=== PATIENT | male | born 1985 | race Caucasian/White ===

== ENCOUNTER → 2016-12-10 | Outpatient (CLI) | payer OTHER | LOC: M OUTALCOH 09:06 | PROVIDERS: ATTEND Psychiatry & Neurology Psychiatry | DX: Z13.9 Encounter for screening, unspecified (principal); F10.20 Alcohol dependence, uncomplicated ==

== ENCOUNTER 2016-12-21 12:38 | Emergency (ER) | payer OTHER ==
[2016-12-21 13:45] LABS: MEAN CORPUSCULAR HEMOGLOBIN 33.4 pg (27.0-33.0); MEAN CORPUSCULAR HGB CONC 34.2 g/dl (32.0-36.5); MEAN CORPUSCULAR VOLUME 97.7 fl (80.0-96.0); RED CELL DISTRIBUTION WIDTH 11.8 % (11.5-14.5); WHITE BLOOD COUNT 4.3 K/mm3 (4.0-10.0)
[2016-12-21 13:46] LABS: AMPHETAMINES LEVEL URINE NEGATIVE (NEGATIVE); BENZODIAZEPINES URINE NEGATIVE (NEGATIVE); COCAINE METABOLITE URINE NEGATIVE (NEGATIVE); CONTROL LINE INT CTR LINE PRESENT; METHADONE URINE NEGATIVE (NEGATIVE); OPIATES URINE NEGATIVE (NEGATIVE); TRICYCLIC ANTIDEPRESS URINE NEGATIVE (NEGATIVE)
[2016-12-21 14:06] LABS: ALBUMIN 4.3 GM/DL (3.2-5.2); ALBUMIN/GLOBULIN RATIO 1.59 (1.00-1.93); ALKALINE PHOSPHATASE 35 U/L (45-117); ALT/SGPT 24 U/L (12-78); ANION GAP 4 MEQ/L (8-16); AST/SGOT 14 U/L (15-37); BILIRUBIN,DIRECT 0.1 MG/DL (0.0-0.2); BILIRUBIN,TOTAL 0.3 MG/DL (0.2-1.0); BLOOD UREA NITROGEN 10 MG/DL (7-18); CALCIUM LEVEL 9.1 MG/DL (8.5-10.1); CARBON DIOXIDE LEVEL 32 MEQ/L (21-32); CHLORIDE LEVEL 110 MEQ/L (98-107); CREATININE FOR GFR 0.93 MG/DL (0.70-1.30); GLOMERULAR FILTRATION RATE > 60.0 (>60); GLUCOSE, FASTING 102 MG/DL (70-105); SODIUM LEVEL 146 MEQ/L (136-145)
[2016-12-21] MEDS ORDERED: BACLOFEN 10 MG TAB As Ordered ONE (19:11)
[2016-12-21] MEDS ORDERED: PHENobarbital 30 MG TAB As Ordered ONE (20:42)
--- NOTE | 2016-12-21 22:52 | EDDOCDS ---
Nurse's Notes [facility] Name: Man Cooper Age: 31 yrs Sex: Male : 1985 Arrival Date: 12/21/2016 Time: 12:[address] MD: Diagnosis: Alcohol dependence with intoxication Presentation: 12/21 12:54 Presenting complaint: Patient states: drinking vodka this morning may have made some jjr suicidal statements to family. Mental Health Triage Level: Level 2: The patient displays active suicidal ideations. The patient is visibly agitated and appears to be potentially at risk. Adult Sepsis Screening: The patient does not have new or worsening altered mentation. Patient's respiratory rate is less than 22. Systolic blood pressure is greater than 100. Patient has a qSOFA score of 0- Negative Sepsis Screen. Suicide/Homicide risk assessment- The patient reports that he/she has not been admitted to an inpatient mental health facility in the last 30 days. The patient reports that he/she has a recent or current history of substance abuse. The patient reports that he/she has no prior history of suicide attempt and/or organized plan. Status: Patient is not a creative services manager or dependent. Transition of care: patient was not received from another setting of care. 12:54 Acuity: CHANDRIKA Level 3 jjr 12:54 Method Of Arrival: Walkin/Carried/Asstd jjr Triage Assessment: 13:01 General: Appears in no apparent distress, Behavior is appropriate for age, cooperative, jjr Smells of alcohol. Pain: Denies pain. HIV screening NA for this visit Offered previously. Historical: - Allergies: no known allergies; - Home Meds: 1. baclofen 10 mg Oral tab 1 tab 3 times per day - PMHx: Alcoholism; Depression; - PSHx: eye surgery; - Social history: Smoking status: Patient states was never smoker of tobacco. No barriers to communication noted, The patient speaks fluent Comoran. - Family history: Not pertinent. - : The pt / caregiver states he / she is not on anticoagulants. Home medication list is obtained from the patient. - Exposure Risk Screening:: None identified. Screenin:02 Screening information is obtained from the patient. Fall risk: At risk due to apparent jjr chemical impairment, added to special handling. Assistance ADL's: requires no assistance with activities of daily living. Abuse/DV Screen: The patient / caregiver reports he/she is: not in a situation that causes fear, pain or injury. Nutritional screening: No deficits noted. Advance Directives: There is no active DNR order. home support is adequate. 13:02 Fall Risk. jjr Assessment: 13:02 General: Appears in no apparent distress, "my family is taking this too seriously I jjr don't need to be here". 15:10 General: First contact with pt. Pt sleeping. No apparent distress. Respirations easy ld5 and unlabored. Will continue to monitor. 16:00 General: Appears in no apparent distress, Behavior is cooperative. General: Pt sleeping ld5 but aroused to voice. Pain: Denies pain. Neurological: Level of Consciousness is obeys commands. Respiratory: Airway is patent Respiratory effort is even, unlabored. GI: Abdomen is flat, non- distended Bowel sounds present X 4 quads. Denies nausea, vomiting. Derm: Skin is intact, Skin is dry. 16:57 General: Appears in no apparent distress. Respiratory: Airway is patent Respiratory ld5 effort is even, unlabored. 17:19 General: Pt out to water cooler. Reports starting to get anxious. Pt states "I'm on a ld5 heavy dose muscle relaxer. Baclofen. Ever heard of it? Well it's deadly if I withdraw from it." Provider made aware of pt's request. Will continue to monitor. 18:20 General: Pt out to bathroom. Steady gait. Denies any needs. Will continue to monitor. ld5 20:19 General: Appears distressed, Behavior is anxious, cooperative, pleasant, restless. rw1 Pain: Denies pain. Neurological: Level of Consciousness is awake, alert, obeys commands, Oriented to person, place, time. Respiratory: Airway is patent Respiratory effort is even, unlabored. Derm: Skin is pink, warm & dry. normal. 21:19 Reassessment: Patient appears in no apparent distress at this time. awake resting on rw1 stretcher, safety maintained will monitor.. 22:16 General: Appears in no apparent distress, Behavior is cooperative. Pain: Denies pain. mgs Neurological: Level of Consciousness is awake, alert, Oriented to person, place, time. Cardiovascular: Capillary refill < 3 seconds. Respiratory: Airway is patent Respiratory effort is even, unlabored, Respiratory pattern is regular, symmetrical. Derm: Skin is pink, warm & dry. 22:30 Reassessment: Patient appears in no apparent distress at this time. awake resting on rw1 stretcher, safety maintained will monitor.. 22:49 Reassessment: Patient appears in no apparent distress at this time. Patient denies pain rw1 at this time. Patient states feeling better. Patient states symptoms have improved. Mental Health Eval: 22:39 Status: The patient is not a creative services manager or dependent. [facility]: The patient is not an established patient of [facility]. Referral Information: Referral Information: Evaluation referral is generated by family. The patient was referred for evaluation because PT was intoxicated and making SI statements. Vital Signs: 12:49 BP 144 / 90; Pulse 90; Resp 18; Temp 97.9; Pulse Ox 98% on R/A; Weight 77.11 kg (R); dpm Height 6 ft. 4 in. (193.04 cm) (R); 17:03 BP 112 / 65; Pulse 130; Resp 18; Temp 98.3(T); Pulse Ox 99% on R/A; dpm 17:55 Pulse 120; ld5 19:10 BP 153 / 77; Pulse 126; Resp 18; Temp 97.0(O); Pulse Ox 96% on R/A; Pain 0/10; rw1 22:49 BP 152 / 92; Pulse 88; Resp 16; Temp 98.4(O); Pulse Ox 99% on R/A; Pain 0/10; rw1 12:49 Body Mass Index 20.69 (77.11 kg, 193.04 cm) dpm Vitals: 22:51 Log In Time: December 21, 2016 at 12:54. rw1 ED Course: 12:39 Patient visited by Nayana Mack Reg. lg 12:39 Patient visited by Filemon Velazquez. dpm 12:39 Patient moved to [facility] lg 12:39 Patient moved to [facility] dpm 12:40 Becky Thomas MD is Attending Physician. sd1 12:40 Patient visited by Becky Thomas MD. sd1 12:55 Patient visited by Filemon Velazquez. dpm 12:55 Triage Initiated jjr 13:02 The patient / caregiver is instructed regarding the plan of care and ED course. jjr 13:16 Patient visited by Becky Linder. sew 13:18 Pt greeted and oriented to ED. Patient advised of names of staff involved in care, dpm location of call sanchez, wait times and NPO status. Patient has correct armband on for positive identification. Placed in gown. Placed in psych safe attire. Security observing. Property removed, inventory done, secured in belongings bag- placed in locked locker. Placed in locker 4. Psych Safety Check: Location: Psych Room. Visual Assessment: Cooperative. 13:28 Acetaminophen Level Sent. jb5 13:29 Attending Physician role handed off by Becky Thomas MD pc 13:29 Alverto Vargas MD is Attending Physician. pc 13:29 Basic Metabolic Profile Sent. jb5 13:29 Complete Blood Count Sent. jb5 13:29 Drug Eval Toxicology ED Only Sent. jb5 13:29 Ethyl Alcohol (ethanol) Sent. jb5 13:29 Thyroid Stimulating Hormone Sent. jb5 13:29 Liver Profile Sent. jb5 13:29 Salicylate Level Sent. jb5 13:31 Patient visited by Filemon Velazquez. dpm 13:33 Patient visited by Cristina Alvarez. dem1 13:49 Patient visited by Cristina Alvarez. dem1 14:04 Patient visited by Filemon Velazquez. dpm 14:19 Patient visited by Filemon Velazquez. dpm 14:37 Patient visited by Filemon Velazquez. dpm 14:51 Patient visited by Filemon Velazquez. dpm 15:02 Patient visited by Filemon Velazquez. dpm 15:10 No IV's were initiated during this patient's visit. No procedures done that require ld5 assistance. 15:15 Patient visited by Filemon Velazquez. dpm 15:32 Patient visited by Filemon Velazquez. dpm 15:44 Patient visited by Kailee Grover RN. ld5 16:01 Patient visited by Filemon Velazquez. dpm 16:14 Patient visited by Filemon Velazquez. dpm 16:30 Patient visited by Filemon Velazquez. dpm 17:03 Patient visited by Filemon Velazquez. dpm 17:21 Patient visited by Kailee Grover RN. ld5 17:34 Patient visited by Filemon Velazquez. dpm 18:04 Patient visited by Filemon Velazquez. dpm 18:26 Patient visited by Filemon Velazquez. dpm 18:32 Patient visited by Kailee Grover RN. ld5 18:43 Patient visited by iFlemon Velazquez. dpm 19:01 Patient visited by Darrion Gan. tr 19:10 Rigoberto Quigley LPN is Primary Nurse. rw1 19:15 Patient visited by Darrion Gan. tr 19:25 Attending Physician role handed off by Alverto Vargas MD cs11 19:25 Jose Manuel Walden DO is Attending Physician. cs11 19:29 Patient visited by Darrion Gan. tr 19:44 Patient visited by Darrion Gan. tr 19:59 Patient visited by Darrion Gan. tr 20:14 Patient visited by Rigoberto Quigley LPN. rw1 20:31 Patient visited by Darrion Gan. tr 20:44 Patient visited by Darrion Gan. tr 21:00 Patient visited by Darrion Gan. tr 21:16 Patient visited by Darrion Gan. tr 21:30 Patient visited by Darrion Gan. tr 21:36 Patient name changed from Man\\S\\\\S\\Allison\\S\\ to Man\\S\\ \\S\\Allison. EDMS 21:36 [facility] Payment Agreement was scanned into [employer] and attached to record. zo 21:46 Patient visited by Darrion Gan. tr 22:01 Patient visited by Darrion Gan. tr 22:15 Patient visited by Darrion Gan. tr 22:17 Patient visited by Quique Blackmon RN. mgs 22:30 Patient visited by Darrion Gan. tr 22:41 Referral list, As provided by [facility] is Referral Physician. cs11 22:49 Patient visited by Darrion Gan. tr 22:51 Patient visited by Rigoberto Quigley LPN. rw1 Administered Medications: 19:19 Drug: Baclofen 10 mg [baclofen 10 mg tablet (1 tabs)] Route: PO; rw1 19:59 Follow up: Response: No Adverse Reaction rw1 20:54 Drug: PHENobarbital 60 mg {Note: 30mg tabs 2 tabs given.} Route: PO; rw1 22:15 Follow up: Response: No Adverse Reaction rw1 Order Results: Lab Order: Acetaminophen Level; [facility] 12/21/16 13:24 Test: ACETAMINOPHEN LEVEL; Value: < 2.0; Range: 10.0-30.0; Abnormal: Below low normal; Units: UG/ML; Status: F Lab Order: Basic Metabolic Profile; [facility] 12/21/16 13:24 Test: GLUCOSE, FASTING; Value: 102; Range: 70-105; Units: MG/DL; Status: F Test: BLOOD UREA NITROGEN; Value: 10; Range: 7-18; Units: MG/DL; Status: F Test: CREATININE FOR GFR; Value: 0.93; Range: 0.70-1.30; Units: MG/DL; Status: F Test: GLOMERULAR FILTRATION RATE; Value: > 60.0; Range: >60; Status: F Test: SODIUM LEVEL; Value: 146; Range: 136-145; Abnormal: Above high normal; Units: MEQ/L; Status: F Test: POTASSIUM SERUM; Value: 4.0; Range: 3.5-5.1; Units: MEQ/L; Status: F Test: CHLORIDE LEVEL; Value: 110; Range: 98-107; Abnormal: Above high normal; Units: MEQ/L; Status: F Test: CARBON DIOXIDE LEVEL; Value: 32; Range: 21-32; Units: MEQ/L; Status: F Test: ANION GAP; Value: 4; Range: 8-16; Abnormal: Below low normal; Units: MEQ/L; Status: F Test: CALCIUM LEVEL; Value: 9.1; Range: 8.5-10.1; Units: MG/DL; Status: F Test Note: ; Units are mL/min/1.73 m2 Chronic Kidney Disease Staging per NKF: Stage I & II GFR >=60 Normal to Mildly Decreased Stage III GFR 30-59 Moderately Decreased Stage IV GFR 15-29 Severely Decreased Stage V GFR <15 Very Little GFR Left ESRD GFR <15 on POULTRY PROCESSOR Lab Order: Complete Blood Count; [facility] 12/21/16 13:24 Test: WHITE BLOOD COUNT; Value: 4.3; Range: 4.0-10.0; Units: K/mm3; Status: F Test: RED BLOOD COUNT; Value: 4.54; Range: 4.30-6.10; Units: M/mm3; Status: F Test: HEMOGLOBIN; Value: 15.2; Range: 14.0-18.0; Units: g/dl; Status: F Test: HEMATOCRIT; Value: 44.3; Range: 42.0-52.0; Units: %; Status: F Test: MEAN CORPUSCULAR VOLUME; Value: 97.7; Range: 80.0-96.0; Abnormal: Above high normal; Units: fl; Status: F Test: MEAN CORPUSCULAR HEMOGLOBIN; Value: 33.4; Range: 27.0-33.0; Abnormal: Above high normal; Units: pg; Status: F Test: MEAN CORPUSCULAR HGB CONC; Value: 34.2; Range: 32.0-36.5; Units: g/dl; Status: F Test: RED CELL DISTRIBUTION WIDTH; Value: 11.8; Range: 11.5-14.5; Units: %; Status: F Test: PLATELET COUNT, AUTOMATED; Value: 247; Range: 150-450; Units: k/mm3; Status: F Lab Order: Drug Eval Toxicology ED Only; SPEC'M 12/21/16 13:22 Test: AMPHETAMINES LEVEL URINE; Value: NEGATIVE; Range: NEGATIVE; Status: F Test: BARBITURATES URINE; Value: NEGATIVE; Range: NEGATIVE; Status: F Test: BENZODIAZEPINES URINE; Value: NEGATIVE; Range: NEGATIVE; Status: F Test: CANNABINOIDS URINE; Value: NEGATIVE; Range: NEGATIVE; Status: F Test: COCAINE METABOLITE URINE; Value: NEGATIVE; Range: NEGATIVE; Status: F Test: METHADONE URINE; Value: NEGATIVE; Range: NEGATIVE; Status: F Test: OPIATES URINE; Value: NEGATIVE; Range: NEGATIVE; Status: F Test: TRICYCLIC ANTIDEPRESS URINE; Value: NEGATIVE; Range: NEGATIVE; Status: F Test Note: ; ALL PRESUMPTIVE POSITIVE FINDINGS ARE UNCONFIRMED NORMAL VALUES THRESHOLD IN NG/ML AMPHETAMINES 1000 METHAMPHETAMINES 1000 BARBITURATES 300 BENZODIAZEPINES 300 CANNABINOIDS (THC) 50 COCAINE METABOLITE 300 METHADONE 300 OPIATES 300 PHENCYCLIDINE 25 TRICYCLIC ANTIDEPRESSANTS 1000 RESULTS ARE FOR MEDICAL PURPOSES ONLY. ALL URINE SPECIMENS WILL BE SAVED FOR 3 DAYS. IF CONFIRMATION OF A PRESUMPTIVE POSTIVE SCREEN RESULT IS DESIRED, CALL CHEMISTRY ([phone]) AND REQUEST URINE TO BE SENT TO REFERENCE LAB. FOR A LIST OF CLOSELY RELATED COMPOUNDS PLEASE CALL THE LAB. Lab Order: Ethyl Alcohol (ethanol); [facility] 12/21/16 13:24 Test: ETHYL ALCOHOL (ETHANOL); Value: 0.332; Range: 0.000-0.010; Abnormal: Above high normal; Units: %; Status: F Lab Order: Liver Profile; [facility] 12/21/16 13:24 Test: AST/SGOT; Value: 14; Range: 15-37; Abnormal: Below low normal; Units: U/L; Status: F Test: ALT/SGPT; Value: 24; Range: 12-78; Units: U/L; Status: F Test: ALKALINE PHOSPHATASE; Value: 35; Range: 45-117; Abnormal: Below low normal; Units: U/L; Status: F Test: BILIRUBIN,TOTAL; Value: 0.3; Range: 0.2-1.0; Units: MG/DL; Status: F Test: BILIRUBIN,DIRECT; Value: 0.1; Range: 0.0-0.2; Units: MG/DL; Status: F Test: TOTAL PROTEIN; Value: 7.0; Range: 6.4-8.2; Units: GM/DL; Status: F Test: ALBUMIN; Value: 4.3; Range: 3.2-5.2; Units: GM/DL; Status: F Test: ALBUMIN/GLOBULIN RATIO; Value: 1.59; Range: 1.00-1.93; Status: F Lab Order: Salicylate Level; [facility] 12/21/16 13:24 Test: SALICYLATE LEVEL; Value: 1.8; Range: 5.0-30.0; Abnormal: Below low normal; Units: MG/DL; Status: F Lab Order: Thyroid Stimulating Hormone; [facility] 12/21/16 13:24 Test: THYROID STIMULATING HORMONE; Value: 0.452; Range: 0.358-3.740; Units: uIU/ML; Status: F Outcome: 22:41 Discharge ordered by Provider. 11 22:49 Discharge Assessment: Patient awake, alert and oriented x 3. No cognitive and/or rw1 functional deficits noted. Patient verbalized understanding of disposition instructions. patient administered narcotics - yes. Pt provided with safe discharge. The following High Risk Discharge criteria are identified: None. Discharged to home ambulatory, in cab. Condition: stable Condition: improved. Discharge instructions given to patient, Instructed on discharge instructions, follow up and referral plans. Demonstrated understanding of instructions, Pt was receptive of discharge instructions/ teaching. No special radiology studies were completed. 22:51 Patient left the ED. rw1 Signatures: Dispatcher [employer] EDMS Alverto Vargas MD MD pc Delaney-Rowland, Sarah, MD MD sd1 Nayana Mack, Reg Reg lg Gan, Darrion tr Gabby Haney, CAD DRAFTSMAN CAD DRAFTSMAN jb5 Rigoberto Quigley,JITNEY DRIVER JITNEY DRIVER rw1 Gokul Hall Jessica, RN RN jjJaylyn Lock, SERGE PSA Kailee Marcano,RN RN ld5 Cristina Alvarez dem1 Filemon Velazquez dpBecky Griffin Craig, DO cs11 Quique Blackmon,RN RN mgs Corrections: (The following items were deleted from the chart) 20:20 19:10 BP 153 / 77; Pulse 126bpm; rw1 rw1 22:43 22:39 Referral Information: john lopez MTDD
--- NOTE | 2016-12-21 22:52 | EDDOCDS ---
Physician Documentation [facility] Name: Man Cooper Age: 31 yrs Sex: Male : 1985 Arrival Date: 12/21/2016 Time: 12:38 Bed [facility] Private MD: Disposition: 12/21/16 22:41 Discharged to Home/Self Care. Impression: Alcohol dependence with intoxication. - Condition is Stable. - Medication Reconciliation, Local Pharmacy Hours form. - Follow up: Referral list, As provided by PFS; When: Call to arrange an appointment; Reason: Recheck today's complaints. - Problem is chronic. - Symptoms have improved. Historical: - Allergies: no known allergies; - Home Meds: 1. baclofen 10 mg Oral tab 1 tab 3 times per day - PMHx: Alcoholism; Depression; - PSHx: eye surgery; - Social history: Smoking status: Patient states was never smoker of tobacco. No barriers to communication noted, The patient speaks fluent Guatemalan. - Family history: Not pertinent. - : The pt / caregiver states he / she is not on anticoagulants. Home medication list is obtained from the patient. - Exposure Risk Screening:: None identified. Vital Signs: 12/21 12:49 BP 144 / 90; Pulse 90; Resp 18; Temp 97.9; Pulse Ox 98% on R/A; Weight 77.11 kg / 170 dpm lbs (R); Height 6 ft. 4 in. (193.04 cm) (R); 17:03 BP 112 / 65; Pulse 130; Resp 18; Temp 98.3(T); Pulse Ox 99% on R/A; dpm 17:55 Pulse 120; ld5 19:10 BP 153 / 77; Pulse 126; Resp 18; Temp 97.0(O); Pulse Ox 96% on R/A; Pain 0/10; rw1 22:49 BP 152 / 92; Pulse 88; Resp 16; Temp 98.4(O); Pulse Ox 99% on R/A; Pain 0/10; rw1 12:49 Body Mass Index 20.69 (77.11 kg, 193.04 cm) dpm MDM: 12:45 Consult PFS/PSA/Classification Analyst ordered. sd1 12:45 Consult PFS/PSA/Classification Analyst: Patient's case requires discussion with on-call sd1 Psychiatrist ordered. 12:45 PSA/PFS to call Nursing Maintainer [employer], to enter patient data on [place] Safe Act if patient sd1 involuntarily admitted or transferred for SI or HI ordered. 12:45 Confirm accurate psychiatric medication list and times of last dosage ordered. sd1 12:45 Detain Pt Until Medically/PFS Cleared ordered. sd1 12:47 Acetaminophen Level Ordered. EDMS 12:47 Basic Metabolic Profile Ordered. EDMS 12:47 Complete Blood Count Ordered. EDMS 12:47 Drug Eval Toxicology ED Only Ordered. EDMS 12:47 Ethyl Alcohol (ethanol) Ordered. EDMS 12:47 Liver Profile Ordered. EDMS 12:47 Salicylate Level Ordered. EDMS 12:47 Thyroid Stimulating Hormone Ordered. EDMS 14:17 Acetaminophen Level Reviewed. pc 14:17 Basic Metabolic Profile Reviewed. pc 14:17 Complete Blood Count Reviewed. pc 14:17 Ethyl Alcohol (ethanol) Reviewed. pc 14:17 Liver Profile Reviewed. pc 14:17 Salicylate Level Reviewed. pc 14:17 Drug Eval Toxicology ED Only Reviewed. pc 14:17 Thyroid Stimulating Hormone Reviewed. pc 16:27 REGULAR DIET PLASTIC SCOTT+DIET ordered. EDMS 19:09 Baclofen 10 mg PO once ordered. ld5 20:39 PHENobarbital 60 mg PO once ordered. cs11 21:36 [facility] Payment Agreement was scanned into [employer] and attached to record. zo 21:36 Financial registration complete. zo 22:38 Consult PFS/PSA/Classification Analyst complete. jfb 22:38 Consult PFS/PSA/Classification Analyst: Patient's case requires discussion with on-call jfb Psychiatrist complete. 22:39 PSA/PFS to call Nursing Maintainer [employer], to enter patient data [place] Safe [place] if patient jfb involuntarily admitted or transferred for SI or HI complete. Administered Medications: 19:19 Drug: Baclofen 10 mg [baclofen 10 mg tablet (1 tabs)] Route: PO; rw1 19:59 Follow up: Response: No Adverse Reaction rw1 20:54 Drug: PHENobarbital 60 mg {Note: 30mg tabs 2 tabs given.} Route: PO; rw1 22:15 Follow up: Response: No Adverse Reaction rw1 Signatures: Dispatcher [employer] EDMS Alverto Vargas MD MD pc Delaney-Rowland, Sarah, MD MD sd1 Rigoberto Quigley LPN LPN rw1 Gokul Hall Jessica, RN RN jjr Jaylyn Smith, SERGE PSA Kailee MarcanoRN RN ld5 Jose Manuel Walden DO DO 11 The chart was reviewed and I authenticate all verbal orders and agree with the evaluation and treatment provided.Attachments: 21:36 [facility] Payment Agreement zo MTDD
--- NOTE | 2016-12-23 23:52 | EDDOCDS ---
Physician Documentation [facility] Name: Man Cooper Age: 31 yrs Sex: Male : 1985 Arrival Date: 12/21/2016 Time: 12:[address] [facility] Private MD: Disposition: 12/21/16 22:41 Discharged to Home/Self Care. Impression: Alcohol dependence with intoxication. - Condition is Stable. - Medication Reconciliation, Local Pharmacy Hours form. - Follow up: Referral list, As provided by PFS; When: Call to arrange an appointment; Reason: Recheck today's complaints. - Problem is chronic. - Symptoms have improved. Historical: - Allergies: no known allergies; - Home Meds: 1. baclofen 10 mg Oral tab 1 tab 3 times per day - PMHx: Alcoholism; Depression; - PSHx: eye surgery; - Social history: Smoking status: Patient states was never smoker of tobacco. No barriers to communication noted, The patient speaks fluent Icelandic. - Family history: Not pertinent. - : The pt / caregiver states he / she is not on anticoagulants. Home medication list is obtained from the patient. - Exposure Risk Screening:: None identified. Vital Signs: 12/21 12:49 BP 144 / 90; Pulse 90; Resp 18; Temp 97.9; Pulse Ox 98% on R/A; Weight 77.11 kg / 170 dpm lbs (R); Height 6 ft. 4 in. (193.04 cm) (R); 17:03 BP 112 / 65; Pulse 130; Resp 18; Temp 98.3(T); Pulse Ox 99% on R/A; dpm 17:55 Pulse 120; ld5 19:10 BP 153 / 77; Pulse 126; Resp 18; Temp 97.0(O); Pulse Ox 96% on R/A; Pain 0/10; rw1 22:49 BP 152 / 92; Pulse 88; Resp 16; Temp 98.4(O); Pulse Ox 99% on R/A; Pain 0/10; rw1 12:49 Body Mass Index 20.69 (77.11 kg, 193.04 cm) dpm MDM: 12:45 Consult PFS/PSA/Reinforced Steel Placing Supervisor ordered. sd1 12:45 Consult PFS/PSA/Reinforced Steel Placing Supervisor: Patient's case requires discussion with on-call sd1 Psychiatrist ordered. 12:45 PSA/PFS to call Nursing Commercial Lines Manager, to enter patient data on [place] Safe Act if patient sd1 involuntarily admitted or transferred for SI or HI ordered. 12:45 Confirm accurate psychiatric medication list and times of last dosage ordered. sd1 12:45 Detain Pt Until Medically/PFS Cleared ordered. sd1 12:47 Acetaminophen Level Ordered. EDMS 12:47 Basic Metabolic Profile Ordered. EDMS 12:47 Complete Blood Count Ordered. EDMS 12:47 Drug Eval Toxicology ED Only Ordered. EDMS 12:47 Ethyl Alcohol (ethanol) Ordered. EDMS 12:47 Liver Profile Ordered. EDMS 12:47 Salicylate Level Ordered. EDMS 12:47 Thyroid Stimulating Hormone Ordered. EDMS 14:17 Acetaminophen Level Reviewed. pc 14:17 Basic Metabolic Profile Reviewed. pc 14:17 Complete Blood Count Reviewed. pc 14:17 Ethyl Alcohol (ethanol) Reviewed. pc 14:17 Liver Profile Reviewed. pc 14:17 Salicylate Level Reviewed. pc 14:17 Drug Eval Toxicology ED Only Reviewed. pc 14:17 Thyroid Stimulating Hormone Reviewed. pc 16:27 REGULAR DIET PLASTIC SCOTT+DIET ordered. EDMS 19:09 Baclofen 10 mg PO once ordered. ld5 20:39 PHENobarbital 60 mg PO once ordered. cs11 21:36 [facility] Payment Agreement was scanned into [employer] and attached to record. zo 21:36 Financial registration complete. zo 22:38 Consult PFS/PSA/Reinforced Steel Placing Supervisor complete. jfb 22:38 Consult PFS/PSA/Reinforced Steel Placing Supervisor: Patient's case requires discussion with on-call jfb Psychiatrist complete. 22:39 PSA/PFS to call Nursing Commercial Lines Manager, to enter patient data [place] Safe [place] if patient jfb involuntarily admitted or transferred for SI or HI complete. 04 18:51 T-Sheet-- Draft Copy was scanned into [employer] and attached to record. klr Administered Medications: 03 19:19 Drug: Baclofen 10 mg [baclofen 10 mg tablet (1 tabs)] Route: PO; rw1 19:59 Follow up: Response: No Adverse Reaction rw1 20:54 Drug: PHENobarbital 60 mg {Note: 30mg tabs 2 tabs given.} Route: PO; rw1 22:15 Follow up: Response: No Adverse Reaction rw1 Signatures: Dispatcher [employer] EDAlverto Benavides MD MD pc Kaye-Burton, Becky, MD MD sd1 Rigoberto Quigley,FOOD SERVICE SALES REPRESENTATIVES FOOD SERVICE SALES REPRESENTATIVES rw1 Gokul Hall Jessica, RN RN jjJaylyn Lock, SERGE PSA Kailee Marcano RN RN ld5 Jose Manuel Walden, DO [place] cs11 Jeannine Hoyt The chart was reviewed and I authenticate all verbal orders and agree with the evaluation and treatment provided.Attachments: 21:36 [facility] Payment Agreement zo 12/22 18:51 T-Sheet-- Draft Copy klr Chart Complete MTDD
--- NOTE | 2016-12-23 23:52 | EDDOCDS ---
Nurse's Notes [facility] Name: Man Cooper Age: 31 yrs Sex: Male : 1985 Arrival Date: 12/21/2016 Time: 12:[address] MD: Diagnosis: Alcohol dependence with intoxication Presentation: 12/21 12:54 Presenting complaint: Patient states: drinking vodka this morning may have made some jjr suicidal statements to family. Mental Health Triage Level: Level 2: The patient displays active suicidal ideations. The patient is visibly agitated and appears to be potentially at risk. Adult Sepsis Screening: The patient does not have new or worsening altered mentation. Patient's respiratory rate is less than 22. Systolic blood pressure is greater than 100. Patient has a qSOFA score of 0- Negative Sepsis Screen. Suicide/Homicide risk assessment- The patient reports that he/she has not been admitted to an inpatient mental health facility in the last 30 days. The patient reports that he/she has a recent or current history of substance abuse. The patient reports that he/she has no prior history of suicide attempt and/or organized plan. Status: Patient is not a diesel service technician or dependent. Transition of care: patient was not received from another setting of care. 12:54 Acuity: CHANDRIKA Level 3 jjr 12:54 Method Of Arrival: Walkin/Carried/Asstd jjr Triage Assessment: 13:01 General: Appears in no apparent distress, Behavior is appropriate for age, cooperative, jjr Smells of alcohol. Pain: Denies pain. HIV screening NA for this visit Offered previously. Historical: - Allergies: no known allergies; - Home Meds: 1. baclofen 10 mg Oral tab 1 tab 3 times per day - PMHx: Alcoholism; Depression; - PSHx: eye surgery; - Social history: Smoking status: Patient states was never smoker of tobacco. No barriers to communication noted, The patient speaks fluent Egyptian. - Family history: Not pertinent. - : The pt / caregiver states he / she is not on anticoagulants. Home medication list is obtained from the patient. - Exposure Risk Screening:: None identified. Screenin:02 Screening information is obtained from the patient. Fall risk: At risk due to apparent jjr chemical impairment, added to special handling. Assistance ADL's: requires no assistance with activities of daily living. Abuse/DV Screen: The patient / caregiver reports he/she is: not in a situation that causes fear, pain or injury. Nutritional screening: No deficits noted. Advance Directives: There is no active DNR order. home support is adequate. 13:02 Fall Risk. jjr Assessment: 13:02 General: Appears in no apparent distress, "my family is taking this too seriously I jjr don't need to be here". 15:10 General: First contact with pt. Pt sleeping. No apparent distress. Respirations easy ld5 and unlabored. Will continue to monitor. 16:00 General: Appears in no apparent distress, Behavior is cooperative. General: Pt sleeping ld5 but aroused to voice. Pain: Denies pain. Neurological: Level of Consciousness is obeys commands. Respiratory: Airway is patent Respiratory effort is even, unlabored. GI: Abdomen is flat, non- distended Bowel sounds present X 4 quads. Denies nausea, vomiting. Derm: Skin is intact, Skin is dry. 16:57 General: Appears in no apparent distress. Respiratory: Airway is patent Respiratory ld5 effort is even, unlabored. 17:19 General: Pt out to water cooler. Reports starting to get anxious. Pt states "I'm on a ld5 heavy dose muscle relaxer. Baclofen. Ever heard of it? Well it's deadly if I withdraw from it." Provider made aware of pt's request. Will continue to monitor. 18:20 General: Pt out to bathroom. Steady gait. Denies any needs. Will continue to monitor. ld5 20:19 General: Appears distressed, Behavior is anxious, cooperative, pleasant, restless. rw1 Pain: Denies pain. Neurological: Level of Consciousness is awake, alert, obeys commands, Oriented to person, place, time. Respiratory: Airway is patent Respiratory effort is even, unlabored. Derm: Skin is pink, warm & dry. normal. 21:19 Reassessment: Patient appears in no apparent distress at this time. awake resting on rw1 stretcher, safety maintained will monitor.. 22:16 General: Appears in no apparent distress, Behavior is cooperative. Pain: Denies pain. mgs Neurological: Level of Consciousness is awake, alert, Oriented to person, place, time. Cardiovascular: Capillary refill < 3 seconds. Respiratory: Airway is patent Respiratory effort is even, unlabored, Respiratory pattern is regular, symmetrical. Derm: Skin is pink, warm & dry. 22:30 Reassessment: Patient appears in no apparent distress at this time. awake resting on rw1 stretcher, safety maintained will monitor.. 22:49 Reassessment: Patient appears in no apparent distress at this time. Patient denies pain rw1 at this time. Patient states feeling better. Patient states symptoms have improved. Mental Health Eval: 22:39 Status: The patient is not a diesel service technician or dependent. [facility]: The patient is not an established patient of [facility]. Referral Information: Referral Information: Evaluation referral is generated by family. The patient was referred for evaluation because PT was intoxicated and making SI statements. 22:43 Subjective: The patients chief complaint is PT states that he is currently residing [facility] with his mother to assist him with staying sober. He is currently facing probation violation in [place] for DUI's and yesterday he attended court in [facility] also for a DWI. PT states his PO will court order treatment so that he will not be sent home from rehab in two weeks due to insurance like the last time he went. If PT completes rehab he will then only have to go to correction for 4 months as opposed to 1 year. PT states he does not wish to but on occasion when drinking he has made suicidal statements. He denies any attempts or hx of self harming and is currently working with [facility] to get into rehab. PT is also on the waiting list for detox and has been calling everyday but there has not been an available bed. Verified information with PT's sister Maia who will allow PT to spend the night with her so that she can extend support. . Delusions are denied. Patient's mood is appropriate. Hallucinations are denied. Mental Health history: alcohol abuse, depression, Mental Health Admissions: None. Current Outpatient Mental Health Services: None. Patient presents to Emergency Department with the following symptoms within the past 2 weeks: alcohol abuse, depressed mood, poor impulse control, sleep disturbance - erratic suicidal ideation with no plan. Substance abuse: Patient uses PT states that he drinks daily but has been trying to drink beer as opposed to the liquor he typically chooses. PT has been in rehab once before at [facility] but his insurance wouldn't pay passed two weeks and he was sent home. Currently PT believes that once back into rehab he will be successful as "I am sick of this 13 year hell". Mental status exam: Patients appearance is appropriate, Patient's behavior is cooperative, Speech is normal. Affect is appropriate. Mood is appropriate. Hallucinations are denied. Appetite is normal. Memory is good. Energy level is normal. Content of thought is normal. Thought process is intact. Cognitive level is oriented to person, place, time and situation Patient's insight is fair. Judgement is fair. Rapport with interviewer is good. Suicidal Ideation is denied. Homicidal ideation is denied. Disposition: Medically cleared for disposition by Jose Manuel Walden DO Psychiatric Consult is deferred per ED physician, Dr Walden. The patient has a safe destination which is his sister's home The patient's discharge transportation plan is by cab. A cab voucher is provided to the patient. [facility] Admission Criteria: Not Applicable. DSM-V Differential Diagnosis: Alcohol Use Disorder. Narrative: PT plans to follow up with [facility] on Saturday and he will continue to call [facility] for bed availability. Vital Signs: 12:49 BP 144 / 90; Pulse 90; Resp 18; Temp 97.9; Pulse Ox 98% on R/A; Weight 77.11 kg (R); dpm Height 6 ft. 4 in. (193.04 cm) (R); 17:03 BP 112 / 65; Pulse 130; Resp 18; Temp 98.3(T); Pulse Ox 99% on R/A; dpm 17:55 Pulse 120; ld5 19:10 BP 153 / 77; Pulse 126; Resp 18; Temp 97.0(O); Pulse Ox 96% on R/A; Pain 0/10; rw1 22:49 BP 152 / 92; Pulse 88; Resp 16; Temp 98.4(O); Pulse Ox 99% on R/A; Pain 0/10; rw1 12:49 Body Mass Index 20.69 (77.11 kg, 193.04 cm) dpm Vitals: 22:51 Log In Time: December 21, 2016 at 12:54. rw1 ED Course: 12:39 Patient visited by Nayana Mack, Lamonte. lg 12:39 Patient visited by Filemon Velazquez. dpm 12:39 Patient moved to Waiting lg 12:39 Patient moved to [facility] dpm 12:40 Becky Thomas MD is Attending Physician. sd1 12:40 Patient visited by Becky Thomas MD. sd1 12:55 Patient visited by Filemon Velazquez. dpm 12:55 Triage Initiated jjr 13:02 The patient / caregiver is instructed regarding the plan of care and ED course. jjr 13:16 Patient visited by Becky Linder. sew 13:18 Pt greeted and oriented to ED. Patient advised of names of staff involved in care, dpm location of call sanchez, wait times and NPO status. Patient has correct armband on for positive identification. Placed in gown. Placed in psych safe attire. Security observing. Property removed, inventory done, secured in belongings bag- placed in locked locker. Placed in locker 4. Psych Safety Check: Location: Psych Room. Visual Assessment: Cooperative. 13:28 Acetaminophen Level Sent. jb5 13:29 Attending Physician role handed off by Becky Thomas MD pc 13:29 Alverto Vargas MD is Attending Physician. pc 13:29 Basic Metabolic Profile Sent. jb5 13:29 Complete Blood Count Sent. jb5 13:29 Drug Eval Toxicology ED Only Sent. jb5 13:29 Ethyl Alcohol (ethanol) Sent. jb5 13:29 Thyroid Stimulating Hormone Sent. jb5 13:29 Liver Profile Sent. jb5 13:29 Salicylate Level Sent. jb5 13:31 Patient visited by Filemon Velazquez. dpm 13:33 Patient visited by Cristina Alvarez. dem1 13:49 Patient visited by Cristina Alvarez. dem1 14:04 Patient visited by Filemon Velazquez. dpm 14:19 Patient visited by Filemon Velazquez. dpm 14:37 Patient visited by Filemon Velazquez. dpm 14:51 Patient visited by Filemon Velazquez. dpm 15:02 Patient visited by Filemon Velazquez. dpm 15:10 No IV's were initiated during this patient's visit. No procedures done that require ld5 assistance. 15:15 Patient visited by Filemon Velaqzuez. dpm 15:32 Patient visited by Filemon Velazquez. dpm 15:44 Patient visited by Kailee Grover RN. ld5 16:01 Patient visited by Filemon Velazquez. dpm 16:14 Patient visited by Filemon Velazquez. dpm 16:30 Patient visited by Filemon Velazquez. dpm 17:03 Patient visited by Filemon Velazquez. dpm 17:21 Patient visited by Kailee Grover RN. ld5 17:34 Patient visited by Filemon Velazquez. dpm 18:04 Patient visited by Filemon Velazquez. dpm 18:26 Patient visited by Filemon Velazquez. dpm 18:32 Patient visited by Kailee Grover RN. ld5 18:43 Patient visited by Filemon Velazquez. dpm 19:01 Patient visited by Darrion Gan. tr 19:10 Rigoberto Quigley LPN is Primary Nurse. rw1 19:15 Patient visited by Darrion Gan. tr 19:25 Attending Physician role handed off by Alverto Vargas MD cs11 19:25 Jose Manuel Walden DO is Attending Physician. cs11 19:29 Patient visited by Darrion Gan. tr 19:44 Patient visited by Darrion Gan. tr 19:59 Patient visited by Darrion Gan. tr 20:14 Patient visited by Rigoberto Quigley LPN. rw1 20:31 Patient visited by Darrion Gan. tr 20:44 Patient visited by Darrion Gan. tr 21:00 Patient visited by Darrion Gan. tr 21:16 Patient visited by Darrion Gan. tr 21:30 Patient visited by Darrion Gan. tr 21:36 Patient name changed from Man\\S\\\\S\\Allison\\S\\ to Man\\S\\ \\S\\Allison. EDMS 21:36 [facility] Payment Agreement was scanned into [employer] and attached to record. zo 21:46 Patient visited by Darrion Gan. tr 22:01 Patient visited by Darrion Gan. tr 22:15 Patient visited by Darrion Gan. tr 22:17 Patient visited by Quique Blackmon RN. mgs 22:30 Patient visited by Darrion Gan. tr 22:41 Referral list, As provided by PFS is Referral Physician. cs11 22:49 Patient visited by Tim. Malik tr 22:51 Patient visited by Rigoberto Quigley LPN. rw1 12/22 18:51 T-Sheet-- Draft Copy was scanned into [employer] and attached to record. klr Administered Medications: 12/21 19:19 Drug: Baclofen 10 mg [baclofen 10 mg tablet (1 tabs)] Route: PO; rw1 19:59 Follow up: Response: No Adverse Reaction rw1 20:54 Drug: PHENobarbital 60 mg {Note: 30mg tabs 2 tabs given.} Route: PO; rw1 22:15 Follow up: Response: No Adverse Reaction rw1 Order Results: Lab Order: Acetaminophen Level; SPEC'M 12/21/16 13:24 Test: ACETAMINOPHEN LEVEL; Value: < 2.0; Range: 10.0-30.0; Abnormal: Below low normal; Units: UG/ML; Status: F Lab Order: Basic Metabolic Profile; SPEC'M 12/21/16 13:24 Test: GLUCOSE, FASTING; Value: 102; Range: 70-105; Units: MG/DL; Status: F Test: BLOOD UREA NITROGEN; Value: 10; Range: 7-18; Units: MG/DL; Status: F Test: CREATININE FOR GFR; Value: 0.93; Range: 0.70-1.30; Units: MG/DL; Status: F Test: GLOMERULAR FILTRATION RATE; Value: > 60.0; Range: >60; Status: F Test: SODIUM LEVEL; Value: 146; Range: 136-145; Abnormal: Above high normal; Units: MEQ/L; Status: F Test: POTASSIUM SERUM; Value: 4.0; Range: 3.5-5.1; Units: MEQ/L; Status: F Test: CHLORIDE LEVEL; Value: 110; Range: 98-107; Abnormal: Above high normal; Units: MEQ/L; Status: F Test: CARBON DIOXIDE LEVEL; Value: 32; Range: 21-32; Units: MEQ/L; Status: F Test: ANION GAP; Value: 4; Range: 8-16; Abnormal: Below low normal; Units: MEQ/L; Status: F Test: CALCIUM LEVEL; Value: 9.1; Range: 8.5-10.1; Units: MG/DL; Status: F Test Note: ; Units are mL/min/1.73 m2 Chronic Kidney Disease Staging per NKF: Stage I & II GFR >=60 Normal to Mildly Decreased Stage III GFR 30-59 Moderately Decreased Stage IV GFR 15-29 Severely Decreased Stage V GFR <15 Very Little GFR Left ESRD GFR <15 on COMPONENT OVERHAUL OPERATOR Lab Order: Complete Blood Count; SPEC'M 12/21/16 13:24 Test: WHITE BLOOD COUNT; Value: 4.3; Range: 4.0-10.0; Units: K/mm3; Status: F Test: RED BLOOD COUNT; Value: 4.54; Range: 4.30-6.10; Units: M/mm3; Status: F Test: HEMOGLOBIN; Value: 15.2; Range: 14.0-18.0; Units: g/dl; Status: F Test: HEMATOCRIT; Value: 44.3; Range: 42.0-52.0; Units: %; Status: F Test: MEAN CORPUSCULAR VOLUME; Value: 97.7; Range: 80.0-96.0; Abnormal: Above high normal; Units: fl; Status: F Test: MEAN CORPUSCULAR HEMOGLOBIN; Value: 33.4; Range: 27.0-33.0; Abnormal: Above high normal; Units: pg; Status: F Test: MEAN CORPUSCULAR HGB CONC; Value: 34.2; Range: 32.0-36.5; Units: g/dl; Status: F Test: RED CELL DISTRIBUTION WIDTH; Value: 11.8; Range: 11.5-14.5; Units: %; Status: F Test: PLATELET COUNT, AUTOMATED; Value: 247; Range: 150-450; Units: k/mm3; Status: F Lab Order: Drug Eval Toxicology ED Only; SPEC'M 12/21/16 13:22 Test: AMPHETAMINES LEVEL URINE; Value: NEGATIVE; Range: NEGATIVE; Status: F Test: BARBITURATES URINE; Value: NEGATIVE; Range: NEGATIVE; Status: F Test: BENZODIAZEPINES URINE; Value: NEGATIVE; Range: NEGATIVE; Status: F Test: CANNABINOIDS URINE; Value: NEGATIVE; Range: NEGATIVE; Status: F Test: COCAINE METABOLITE URINE; Value: NEGATIVE; Range: NEGATIVE; Status: F Test: METHADONE URINE; Value: NEGATIVE; Range: NEGATIVE; Status: F Test: OPIATES URINE; Value: NEGATIVE; Range: NEGATIVE; Status: F Test: TRICYCLIC ANTIDEPRESS URINE; Value: NEGATIVE; Range: NEGATIVE; Status: F Test Note: ; ALL PRESUMPTIVE POSITIVE FINDINGS ARE UNCONFIRMED NORMAL VALUES THRESHOLD IN NG/ML AMPHETAMINES 1000 METHAMPHETAMINES 1000 BARBITURATES 300 BENZODIAZEPINES 300 CANNABINOIDS (THC) 50 COCAINE METABOLITE 300 METHADONE 300 OPIATES 300 PHENCYCLIDINE 25 TRICYCLIC ANTIDEPRESSANTS 1000 RESULTS ARE FOR MEDICAL PURPOSES ONLY. ALL URINE SPECIMENS WILL BE SAVED FOR 3 DAYS. IF CONFIRMATION OF A PRESUMPTIVE POSTIVE SCREEN RESULT IS DESIRED, CALL CHEMISTRY ([phone]) AND REQUEST URINE TO BE SENT TO REFERENCE LAB. FOR A LIST OF CLOSELY RELATED COMPOUNDS PLEASE CALL THE LAB. Lab Order: Ethyl Alcohol (ethanol); SPEC' 12/21/16 13:24 Test: ETHYL ALCOHOL (ETHANOL); Value: 0.332; Range: 0.000-0.010; Abnormal: Above high normal; Units: %; Status: F Lab Order: Liver Profile; [facility]' 12/21/16 13:24 Test: AST/SGOT; Value: 14; Range: 15-37; Abnormal: Below low normal; Units: U/L; Status: F Test: ALT/SGPT; Value: 24; Range: 12-78; Units: U/L; Status: F Test: ALKALINE PHOSPHATASE; Value: 35; Range: 45-117; Abnormal: Below low normal; Units: U/L; Status: F Test: BILIRUBIN,TOTAL; Value: 0.3; Range: 0.2-1.0; Units: MG/DL; Status: F Test: BILIRUBIN,DIRECT; Value: 0.1; Range: 0.0-0.2; Units: MG/DL; Status: F Test: TOTAL PROTEIN; Value: 7.0; Range: 6.4-8.2; Units: GM/DL; Status: F Test: ALBUMIN; Value: 4.3; Range: 3.2-5.2; Units: GM/DL; Status: F Test: ALBUMIN/GLOBULIN RATIO; Value: 1.59; Range: 1.00-1.93; Status: F Lab Order: Salicylate Level; SPEC' 12/21/16 13:24 Test: SALICYLATE LEVEL; Value: 1.8; Range: 5.0-30.0; Abnormal: Below low normal; Units: MG/DL; Status: F Lab Order: Thyroid Stimulating Hormone; SPEC'M 12/21/16 13:24 Test: THYROID STIMULATING HORMONE; Value: 0.452; Range: 0.358-3.740; Units: uIU/ML; Status: F Outcome: 22:41 Discharge ordered by Provider. cs11 22:49 Discharge Assessment: Patient awake, alert and oriented x 3. No cognitive and/or rw1 functional deficits noted. Patient verbalized understanding of disposition instructions. patient administered narcotics - yes. Pt provided with safe discharge. The following High Risk Discharge criteria are identified: None. Discharged to home ambulatory, in cab. Condition: stable Condition: improved. Discharge instructions given to patient, Instructed on discharge instructions, follow up and referral plans. Demonstrated understanding of instructions, Pt was receptive of discharge instructions/ teaching. No special radiology studies were completed. 22:51 Patient left the ED. rw1 Signatures: Dispatcher [employer] EDMS Alverto Vargas MD MD pc Delaney-Rowland, Sarah, MD MD sd1 Nayana Mack, Reg Reg lg Gan, Darrion tr Gabby Haney, YARDER BOSS YARDER BOSS jb5 Rigoberto Quigley,CHECK OUT CLERK CHECK OUT CLERK rw1 Gokul Hall Jessica, RN RN Jaylyn Anthony, SERGE PSA Kailee Marcano,RN RN ld5 Cristina Alvarez dem1 Filemon Velazquez dpBecky Griffin Craig, DO cs11 Quique Blackmon,ARSENIO RN Jeannine iLm Corrections: (The following items were deleted from the chart) 20:20 19:10 BP 153 / 77; Pulse 126bpm; rw1 rw1 22:43 22:39 Referral Information: john lopez Chart Complete MTDD
--- NOTE | 2016-12-23 23:52 | EDDOCDS ---
Physician Documentation [facility] Name: Man Cooper Age: 31 yrs Sex: Male : 1985 Arrival Date: 12/21/2016 Time: 12:38 Bed [facility] Private MD: Disposition: 12/21/16 22:41 Discharged to Home/Self Care. Impression: Alcohol dependence with intoxication. - Condition is Stable. - Medication Reconciliation, Local Pharmacy Hours form. - Follow up: Referral list, As provided by PFS; When: Call to arrange an appointment; Reason: Recheck today's complaints. - Problem is chronic. - Symptoms have improved. Historical: - Allergies: no known allergies; - Home Meds: 1. baclofen 10 mg Oral tab 1 tab 3 times per day - PMHx: Alcoholism; Depression; - PSHx: eye surgery; - Social history: Smoking status: Patient states was never smoker of tobacco. No barriers to communication noted, The patient speaks fluent Persian. - Family history: Not pertinent. - : The pt / caregiver states he / she is not on anticoagulants. Home medication list is obtained from the patient. - Exposure Risk Screening:: None identified. Vital Signs: 12/21 12:49 BP 144 / 90; Pulse 90; Resp 18; Temp 97.9; Pulse Ox 98% on R/A; Weight 77.11 kg / 170 dpm lbs (R); Height 6 ft. 4 in. (193.04 cm) (R); 17:03 BP 112 / 65; Pulse 130; Resp 18; Temp 98.3(T); Pulse Ox 99% on R/A; dpm 17:55 Pulse 120; ld5 19:10 BP 153 / 77; Pulse 126; Resp 18; Temp 97.0(O); Pulse Ox 96% on R/A; Pain 0/10; rw1 22:49 BP 152 / 92; Pulse 88; Resp 16; Temp 98.4(O); Pulse Ox 99% on R/A; Pain 0/10; rw1 12:49 Body Mass Index 20.69 (77.11 kg, 193.04 cm) dpm MDM: 12:45 Consult PFS/PSA/Heat Curer ordered. sd1 12:45 Consult PFS/PSA/Heat Curer: Patient's case requires discussion with on-call sd1 Psychiatrist ordered. 12:45 PSA/PFS to call Nursing Tank Stave Assembler, to enter patient data on [place] Safe Act if patient sd1 involuntarily admitted or transferred for SI or HI ordered. 12:45 Confirm accurate psychiatric medication list and times of last dosage ordered. sd1 12:45 Detain Pt Until Medically/PFS Cleared ordered. sd1 12:47 Acetaminophen Level Ordered. EDMS 12:47 Basic Metabolic Profile Ordered. EDMS 12:47 Complete Blood Count Ordered. EDMS 12:47 Drug Eval Toxicology ED Only Ordered. EDMS 12:47 Ethyl Alcohol (ethanol) Ordered. EDMS 12:47 Liver Profile Ordered. EDMS 12:47 Salicylate Level Ordered. EDMS 12:47 Thyroid Stimulating Hormone Ordered. EDMS 14:17 Acetaminophen Level Reviewed. pc 14:17 Basic Metabolic Profile Reviewed. pc 14:17 Complete Blood Count Reviewed. pc 14:17 Ethyl Alcohol (ethanol) Reviewed. pc 14:17 Liver Profile Reviewed. pc 14:17 Salicylate Level Reviewed. pc 14:17 Drug Eval Toxicology ED Only Reviewed. pc 14:17 Thyroid Stimulating Hormone Reviewed. pc 16:27 REGULAR DIET PLASTIC SCOTT+DIET ordered. EDMS 19:09 Baclofen 10 mg PO once ordered. ld5 20:39 PHENobarbital 60 mg PO once ordered. cs11 21:36 [facility] Payment Agreement was scanned into [employer] and attached to record. zo 21:36 Financial registration complete. zo 22:38 Consult PFS/PSA/Heat Curer complete. jfb 22:38 Consult PFS/PSA/Heat Curer: Patient's case requires discussion with on-call jfb Psychiatrist complete. 22:39 PSA/PFS to call Nursing Tank Stave Assembler, to enter patient data [place] Safe [place] if patient jfb involuntarily admitted or transferred for SI or HI complete. 04 18:51 T-Sheet-- Draft Copy was scanned into [employer] and attached to record. klr Administered Medications: 03 19:19 Drug: Baclofen 10 mg [baclofen 10 mg tablet (1 tabs)] Route: PO; rw1 19:59 Follow up: Response: No Adverse Reaction rw1 20:54 Drug: PHENobarbital 60 mg {Note: 30mg tabs 2 tabs given.} Route: PO; rw1 22:15 Follow up: Response: No Adverse Reaction rw1 Signatures: Dispatcher [employer] EDAlverto Benavides MD MD pc Kaye-Burton, Becky, MD MD sd1 Rigoberto Quigley,MANAGER NET MANAGER NET rw1 Gokul Hall Jessica, RN RN jjJaylyn Lock, SEREG PSA Kailee Marcano RN RN ld5 Jose Manuel Walden, DO [place] cs11 Jeannine Hoyt The chart was reviewed and I authenticate all verbal orders and agree with the evaluation and treatment provided.Attachments: 21:36 [facility] Payment Agreement zo 12/22 18:51 T-Sheet-- Draft Copy klr Chart Complete MTDD
== END 2016-12-21 22:51 | disposition home or self-care (01) ==
LOC: M ED 12:38
DX: F10.220 Alcohol dependence with intoxication, uncomplicated (principal); F32.9 Major depressive disorder, single episode, unspecified; Z79.899 Other long term (current) drug therapy
CPT/HCPCS: 36415; 80048; 80076; 80306; 84443; 85027; 99284; G0480

== ENCOUNTER → 2024-09-01 | Outpatient (REF) | payer OTHER | LOC: M SFHCCAPE 10:48 | PROVIDERS: ATTEND Physician Assistant Medical | DX: F98.8 Other specified behavioral and emotional disorders with onset usually occurring in childhood and adolescence (principal) ==

== ENCOUNTER → 2024-09-09 | Outpatient (CLI) | payer OTHER ==
[~2024-09-09] MED LIST: GASTROGRAFIN SOLUTION 30ML ONE; ISOVUE-370 76% 100ML VIAL ONE
== END ==
LOC: M PLAIMG 12:08
PROVIDERS: ATTEND Physician Assistant Medical
DX: R10.84 Generalized abdominal pain (principal); K59.00 Constipation, unspecified

== ENCOUNTER → 2024-09-24 | Outpatient (CLI) | payer OTHER ==
[2024-09-24 16:56] LABS: BASO # 0.1 10^3/uL (0.0-0.2); BASO % 0.6 % (0.0-1.0); EOS % 0.3 % (0.0-3.0); HEMATOCRIT 41.7 % (42.0-52.0); HEMOGLOBIN 13.7 g/dl (13.5-17.5); LYMPH # 2.9 10^3/uL (1.5-5.0); LYMPH % 30.5 % (24.0-44.0); MEAN CORPUSCULAR HEMOGLOBIN 31.6 pg (27.0-33.0); MEAN CORPUSCULAR HGB CONC 32.9 g/dl (32.0-36.5); MEAN CORPUSCULAR VOLUME 96.1 fl (80.0-96.0); MONO # 0.8 10^3/uL (0.0-0.8); MONO % 8.5 % (2.0-8.0); NEUTROPHILS # 5.7 10^3/uL (1.5-8.5); NEUTROPHILS % 59.8 % (36.0-66.0); PLATELET COUNT, AUTOMATED 372 10^3/uL (150-450); RED BLOOD COUNT 4.34 10^6/uL (4.30-6.10); WHITE BLOOD COUNT 9.5 10^3/uL (4.0-10.0)
[2024-09-24 17:01] LABS: TOTAL IRON BINDING CAPACITY 282 UG/DL (250-425)
[2024-09-24 17:02] LABS: ALBUMIN 4.5 G/DL (3.2-5.2); ALKALINE PHOSPHATASE 50 U/L (40-129); ALT/SGPT 28 U/L (7.0-40); AST/SGOT 19 U/L (<34); BILIRUBIN,TOTAL 0.4 MG/DL (0.3-1.2); BLOOD UREA NITROGEN 9 MG/DL (9-23); CALCIUM LEVEL 10.1 MG/DL (8.5-10.1); CARBON DIOXIDE LEVEL 29 MMOL/L (20-31); CHLORIDE LEVEL 103 MMOL/L (98-107); CHOLESTEROL LEVEL 190 MG/DL (<200); CHOLESTEROL RISK RATIO 2.11 (<5); CREATININE FOR GFR 0.79 MG/DL (0.70-1.30); GLOMERULAR FILTRATION RATE > 60.0 (>60); GLUCOSE, FASTING 103 MG/DL (60-100); HDL CHOLESTEROL 89.9 MG/DL (>40); IRON (FE) 140 UG/DL (65-175); LDL CHOLESTEROL 86.7 MG/DL (<100); NON-HDL-C 100.1 MG/DL; PERCENT SATURATION 49.6 % (19.7-50.0); POTASSIUM SERUM 4.5 MMOL/L (3.5-5.1); SODIUM LEVEL 139 MMOL/L (136-145); TOTAL PROTEIN 7.2 G/DL (5.7-8.2); TRIGLYCERIDES LEVEL 67 MG/DL (<150)
[2024-09-24 17:04] LABS: FERRITIN 156.5 NG/ML (10.5-307.3)
[2024-09-24 17:27] LABS: HEMOGLOBIN A1c 5.2 % (4.0-6.0)
== END ==
LOC: M WUC 13:17
PROVIDERS: ATTEND Physician Assistant Medical
DX: F41.1 Generalized anxiety disorder (principal); F39 Unspecified mood [affective] disorder; E61.1 Iron deficiency; Z13.1 Encounter for screening for diabetes mellitus; Z13.220 Encounter for screening for lipoid disorders; R10.84 Generalized abdominal pain

== ENCOUNTER → 2024-10-14 | Outpatient (CLI) | payer OTHER | LOC: M PLAIMG 07:28 | PROVIDERS: ATTEND Physician Assistant Medical | DX: K83.8 Other specified diseases of biliary tract (principal) ==

== ENCOUNTER → 2024-12-22 | Outpatient (REF) | payer OTHER ==
[2024-12-22 18:26] LABS: FREE T4 1.42 NG/DL (0.89-1.76)
[2024-12-22 18:27] LABS: THYROID STIMULATING HORMONE 1.154 uIU/ML (0.55-4.78)
[2024-12-22 18:30] LABS: ALBUMIN 3.7 G/DL (3.2-5.2); ALKALINE PHOSPHATASE 55 U/L (40-129); ALT/SGPT 21 U/L (7.0-40); AST/SGOT 18 U/L (<34); BILIRUBIN,TOTAL 0.2 MG/DL (0.3-1.2); BLOOD UREA NITROGEN 11 MG/DL (9-23); CALCIUM LEVEL 8.5 MG/DL (8.5-10.1); CARBON DIOXIDE LEVEL 31 MMOL/L (20-31); CHLORIDE LEVEL 107 MMOL/L (98-107); CREATININE FOR GFR 0.66 MG/DL (0.70-1.30); GLOMERULAR FILTRATION RATE > 60.0 (>60); GLUCOSE, FASTING 84 MG/DL (60-100); POTASSIUM SERUM 4.6 MMOL/L (3.5-5.1); SODIUM LEVEL 141 MMOL/L (136-145); TOTAL PROTEIN 6.6 G/DL (5.7-8.2)
== END ==
LOC: M SFHCCAPE 11:13
PROVIDERS: ATTEND Physician Assistant Medical
DX: F41.1 Generalized anxiety disorder (principal)

== ENCOUNTER 2025-01-27 11:46 | Emergency (ER) | payer MEDICAID, OTHER ==
[~2025-01-27] VITALS: Ht 193 cm; Wt 72.7 kg
[2025-01-27] MEDS ORDERED: LAMO100T3 (11:54)
[2025-01-27] MEDS ORDERED: AMPH1TAB2 (11:54)
[2025-01-27] MEDS ORDERED: FLUO-365 (11:54)
[2025-01-27] MEDS ORDERED: IBUP-1022 PO (15:38)
[2025-01-27] MEDS ORDERED: CYCL-707 PO (15:38)
[2025-01-27] MEDS ORDERED: MEDR4TAB PO (15:38)
[2025-01-27] MEDS: KETOROLAC 30 MG/ML 1ML VIAL IM ONE (15:43)
[2025-01-27 15:58] VITALS: BP 132/78; TEMP 97.8; O2SAT 98
== END 2025-01-27 16:01 | disposition home or self-care (01) ==
LOC: M ED 11:46
DX: M46.1 Sacroiliitis, not elsewhere classified (principal); F31.9 Bipolar disorder, unspecified; F90.9 Attention-deficit hyperactivity disorder, unspecified type; Z79.899 Other long term (current) drug therapy; Z79.1 Long term (current) use of non-steroidal anti-inflammatories (NSAID)
CPT/HCPCS: 73502; 96372; 99283; J1885

== ENCOUNTER → 2025-09-09 | Outpatient (REF) | payer OTHER ==
[~2025-09-09] MED LIST changes: +AMPH1TAB2; +CYCL-707 PO; +FLUO-365; -GASTROGRAFIN SOLUTION 30ML ONE; +IBUP600T42 PO; -ISOVUE-370 76% 100ML VIAL ONE; +LAMO100T3; +MEDR4TAB PO
[2025-09-09 18:44] LABS: ALT/SGPT 19 U/L (7.0-40); AST/SGOT 18 U/L (<34); CALCIUM LEVEL 8.9 MG/DL (8.5-10.1); CARBON DIOXIDE LEVEL 30 MMOL/L (20-31); CHLORIDE LEVEL 104 MMOL/L (98-107); CREATININE FOR GFR 0.81 MG/DL (0.70-1.30); GLOMERULAR FILTRATION RATE > 90.0 (>60); POTASSIUM SERUM 3.9 MMOL/L (3.5-5.1); SODIUM LEVEL 142 MMOL/L (136-145)
== END ==
LOC: M SFHCCAPE 09:15
PROVIDERS: ATTEND Physician Assistant Medical
DX: F39 Unspecified mood [affective] disorder (principal)

== ENCOUNTER → 2025-09-16 | Outpatient (REF) | payer OTHER | LOC: M SFHCCAPE 11:44 | PROVIDERS: ATTEND Physician Assistant Medical | DX: F90.9 Attention-deficit hyperactivity disorder, unspecified type (principal) ==

== ENCOUNTER → 2025-10-28 | Outpatient (CLI) | payer OTHER | LOC: M RAD 10:34 | PROVIDERS: ATTEND Physician Assistant Medical | DX: R59.0 Localized enlarged lymph nodes (principal) ==